=== PATIENT | male | born 1990 | race Caucasian/White ===

== ENCOUNTER 2019-07-26 12:08 | Emergency (ER) | payer OTHER ==
--- NOTE | 2019-07-26 13:27 | ED Physician Documentation ---
PD HPI BACK INJURY - Stated complaint Stated Complaint: BACK PX - History obtained from History obtained from: Patient - History of Present Illness Location: Left, Upper Type of injury: Blunt / blow (from falling object, a hoist fell from about 12 feet above and landed onto his left scapular area. Pain with shoulder movement and deep breathing.) Where injury occurred: Work Timing - onset: Today Timing - details: Abrupt onset, Still present Quality: Pain, Spasm, Aching. No: Tearing Improved by: Rest Worsened by: Moving, Palpating, Other (deep breathing) Associated symptoms: No: Fever, Weakness, Numbness Contributing factors: Work related Similar symptoms before: Has not had sx before Review of Systems Constitutional: denies: Fever, Chills Nose: denies: Rhinorrhea / runny nose, Congestion Throat: denies: Sore throat Respiratory: denies: Cough GI: denies: Abdominal Pain Skin: denies: Abrasion (s), Laceration (s) Musculoskeletal: reports: Back pain. denies: Neck pain Neurologic: denies: Focal weakness, Numbness, Altered mental status, Head injury, LOC PD PAST MEDICAL HISTORY - Past Medical History Past Medical History: No - Allergies Allergies/Adverse Reactions: Allergies Allergy/AdvReac Type Severity Reaction Status Date / Time No Known Drug Allergies Allergy Verified 07/26/19 12:18 PD ED PE NORMAL - Vitals Vital signs reviewed: Yes - General General: Alert and oriented X 3, No acute distress, Well developed/nourished - HEENT HEENT: Atraumatic - Neck Neck: Supple, no meningeal sign, No bony TTP, No adenopathy - Cardiac Cardiac: RRR, No murmur - Respiratory Respiratory: Clear bilaterally - Abdomen Abdomen: Soft, Non tender - Back Back: No spinal TTP (but is tender in left scapular and medial ribs area. No deformity nor crepitance. Guarded ROM of the shoulder as causes pain to scapular area. ) - Derm Derm: Normal color, Warm and dry - Extremities Extremities: No tenderness to palpate Results - Vitals Vitals: Oxygen O2 Source Room air - Rads (name of study) chest CT Radiology: Prelim report reviewed (no bony nor pulmonary injury), See rad report PD MEDICAL DECISION MAKING - ED course Complexity details: reviewed results, considered differential, d/w patient Departure - Departure Disposition: 01 Home, Self Care Clinical Impression: Contusion of left scapular region Qualifiers: Encounter type: initial encounter Qualified Code(s): S40.012A - Contusion of left shoulder, initial encounter Condition: Stable Record reviewed to determine appropriate education?: Yes Instructions: ED Contusion Back Comments: There are no fractures seen on the CT scan and no injury to the lung. The ribs spine and scapula appear normal. He will still be sore of the muscles and so will have pain with overhead reaching, lifting, push pole (shoulder girdle movements) for several days or so. Progress activity as able. Use some naproxen or ibuprofen 2-3 times a day. To that add Tylenol 650 mg every 4-6 hours. Recheck if not improved well over the next 3 to 5 days. Forms: Activity restrictions Discharge Date/Time: 07/26/19 14:50
--- NOTE | 2019-07-26 14:17 | CT Report ---
Reason: L scapular/mid thoracic injury from falling object Procedure Date: 07/26/2019 Accession Number: [id number] / [id number] Procedure: CT - CHEST WO CPT Code: FULL RESULT: EXAM: CT CHEST EXAM DATE: 07/26/2019 01:50 PM. CLINICAL HISTORY: Left scapular/mid thoracic injury from falling object. COMPARISONS: None. TECHNIQUE: Routine helical CT imaging was performed through the chest. IV contrast: None. Reconstructions: Coronal and sagittal. In accordance with CT protocol optimization, one or more of the following dose reduction techniques were utilized for this exam: automated exposure control, adjustment of mA and/or KV based on patient size, or use of iterative reconstructive technique. FINDINGS: Lungs/Pleura: No nodules, bronchial thickening, consolidation, or edema. Pulmonary vasculature is normal. No pericardial or pleural effusion. No pneumothorax. Mediastinum: Normal. No adenopathy or masses. The heart and great vessels are normal. Bones: Normal. No evidence of fracture. Visualized Abdomen: Unremarkable. Other: None. IMPRESSION: Normal chest CT. No evidence of fracture or pneumothorax. [facility]
[2019-07-26 14:55] VITALS: BP 107/70
== END 2019-07-26 14:50 | disposition home or self-care (01) ==
LOC: ED 12:08
DX: S40.012A Contusion of left shoulder, initial encounter (principal); W31.89XA Contact with other specified machinery, initial encounter; Y99.0 Civilian activity done for income or pay
CPT/HCPCS: 71250; 99282; 99283